=== PATIENT | male | born 1995 | race Caucasian/White ===

== ENCOUNTER 2018-03-31 10:57 | Emergency (ER) | payer SELFPAY ==
[2018-03-31] MEDS ORDERED: MORPHINE 4 MG/ML SYR ONE (11:20)
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
[2018-03-31] MEDS ORDERED: BACITRACIN OINTMENT 15 GM TUBE TOP SCH (12:00)
[2018-03-31] MEDS ORDERED: SILVER SULFADIAZINE 1% 25 GM TOP ONE (12:02)
== END 2018-03-31 12:25 | disposition home or self-care (01) ==
LOC: ER 10:57
DX: T24.212A Burn of second degree of left thigh, initial encounter (principal); X03.0XXA Exposure to flames in controlled fire, not in building or structure, initial encounter; Y93.9 Activity, unspecified; Y92.009 Unspecified place in unspecified non-institutional (private) residence as the place of occurrence of the external cause; F17.210 Nicotine dependence, cigarettes, uncomplicated